=== PATIENT | male | born 2000 | race African-American/Black ===

== ENCOUNTER 2022-05-18 10:24 | Emergency (ER) | payer OTHER ==
[~2022-05-18] VITALS: Ht 170.2 cm; Wt 68.9 kg
--- NOTE | 2022-05-18 10:25 | NUR ---
Pt brought by friend, A&Ox4, pt presents to ER with chest pain x2 days, pt states pain increases with movement, skin pink and warm, cap refill <3, VSS.
[2022-05-18 10:36] VITALS: BP_SYST 135
--- NOTE | 2022-05-18 15:04 | NUR ---
made call out to ER and lobby no answer not seen by physician
== END 2022-05-18 13:20 | disposition left against medical advice (07) ==
LOC: SED 10:24
DX: R07.89 Other chest pain (principal); Z53.21 Procedure and treatment not carried out due to patient leaving prior to being seen by health care provider
CPT/HCPCS: 93005